=== PATIENT | female | born 1995 | race African-American/Black ===

== ENCOUNTER 2020-10-28 08:33 | Emergency (ER) | payer BC, SELFPAY ==
[2020-10-28] VITALS (7 sets, daily range): BP systolic 103–132; BP diastolic 68–86; PULSE 60–87; RESP 19–21; TEMP 36.1; O2SAT 100
--- NOTE | ~2020-10-28 | CT_ITS ---
EXAMINATION: CT brain wo con DATE: 10/28/2020 10:24 INDICATION: Syncope. Headache. TECHNIQUE: Computed tomography (CT) of the head was performed without intravenous contrast. The mA wa s adjusted according to patient size. Iterative reconstruction technique was employed. The dose-lengt h product was 605.33 mGy-cm. COMPARISON: None FINDINGS: There is no intracranial hemorrhage, acute infarction, or abnormal intracranial mass lesion . The ventricles are normal in size. There is mucosal thickening in the paranasal sinuses. The orbits are normal. The mastoid air cells are normal. IMPRESSION: 1. Normal brain. Reviewed, dictated and finalized at location A. IMPRESSION: 1. Normal brain.
--- NOTE | 2020-10-28 08:50 | ECG_ITS ---
Measurements Intervals [place] Rate: 65 P: 18 OK: 147 QRS: 84 QRSD: 89 T: 30 QT: 398 QTc: 414 Interpretive Statements SINUS RHYTHM WITH SINUS ARRHYTHMIA BASELINE ARTIFACT- I, II, AVR NORMAL ECG Electronically Signed On 10-28-2020 11:11:45 CDT by Ramón Barnard D.O.
[2020-10-28 09:10] LABS: Basophils Percent Auto 0.4 % (0.2-1.2); Eosinophils Absolute Auto 0.1 K/mm3 (0-0.3); Eosinophils Percent Auto 1.7 % (0-4.4); Hematocrit 39.2 % (37.0-47.0); Hemoglobin 13.2 g/dL (12.0-15.0); Immature Granulocyte Absolute 0.01 K/mm3 (0.00-0.031); Immature Granulocyte Percent A 0.2 % (0-0.5); Lymphocytes Absolute Auto 1.39 K/mm3 (0.9-3.2); Lymphocytes Percent Auto 29.1 % (18.3-44.2); Mean Corpuscular HGB Conc 33.7 g/dl (32-36); Mean Corpuscular Hemoglobin 33.1 pg (26-34); Mean Corpuscular Volume 98.2 fl (80-100); Mean Platelet Volume 10.7 fl (7.4-10.4); Monocytes Absolute Auto 0.4 K/mm3 (0.1-0.6); Monocytes Percent Auto 8.6 % (2.6-8.5); Neutrophils Absolute Auto 2.9 K/mm3 (1.3-6.7); Platelet Count Result 214 k/mm3 (150-375); Red Blood Count 3.99 M/mm3 (4.2-5.4); White Blood Count 4.8 K/mm3 (4.5-10.0)
[2020-10-28 09:22] LABS: Anion Gap 5 mmol/L (8-16); Blood Urea Nitrogen 12 mg/dL (7-17); Calcium 8.8 mg/dL (8.4-10.2); Carbon Dioxide 27 mmol/L (22-30); Chloride 107 mmol/L (98-107); Estimated CRCL calculation 77 ml/min; Estimated Glomerular Filt Rate > 60; Glucose 97 mg/dL (65-105); Potassium 4.4 mmol/L (3.4-5.0); Sodium 139 mmol/L (137-145)
--- NOTE | 2020-10-28 10:17 | PC.NURSE ---
Pt ambulatory to the bathroom with visitor at her side
[2020-10-28 10:53] LABS: Add Urine Microscopic? NO; Appearance Urine Clear (Clear); Bilirubin Urine Negative (Negative); Blood Urine Negative (Negative); Color Urine Yellow (Yellow); Glucose Urine UA Negative (Negative); Ketones Urine Negative (Negative); Leukocyte Esterase Ur Negative LEU/UL (Negative); Nitrate Urine Negative (Negative); Protein Urine Negative (Negative); Specific Grav Ur 1.023 (1.001-1.035); Urobilinogen Urine Negative mg/dL (<2.0)
[2020-10-28] MEDS: SODIUM CHLORIDE 0.9% IV 1,000 ML 999 ML IV CONT (11:32)
--- NOTE | 2020-10-28 11:43 | PC.NURSE ---
called lab, [facility], added on TSH [id number]
--- NOTE | 2020-10-28 18:08 | ED.GENADULT ---
HPI - General Adult General Chief complaint: Syncope Stated complaint: syncope yesterday Time Seen by Provider: 10/28/20 10:05 Source: patient Mode of arrival: ambulatory Limitations: no limitations History of Present Illness HPI narrative: Patient presents for evaluation of headache after a syncopal episode yesterday while standing. Patient was standing states she feels flushed then her vision became dark and she passed out. Her girlfriend states that she was only unconscious for approximately 10 seconds then she became responsive. She denies seizure-like activity. She denies vomiting, chest pain, shortness of breath, nausea, bleeding from any of her orifices or neurological deficits. Patient denies having a seizure history. Patient states she has not been ill recently. Patient denies chance of due to homosexuality. Patient denies urinary symptoms. Related Data Home Medications Medication Instructions Recorded Confirmed No Home Medications 10/28/20 10/28/20 Allergies Allergy/AdvReac Type Severity Reaction Status Date / Time No Known Allergies Allergy Mild Verified 10/28/20 10:08 Review of Systems Review of Systems: Narrative: CONSTITUTIONAL: Denies fever, chills, or sweats. EYES: Denies visual changes, redness, or discharge. ENT: Denies rhinorrhea, congestion, sore throat, or otalgia. CARDIOVASCULAR: Denies chest pain, palpitations, or edema. RESPIRATORY: Denies cough or dyspnea. GASTROINTESTINAL: Denies abdominal pain, nausea, vomiting, or diarrhea. GENITOURINARY: Denies dysuria or hematuria. SKIN: Denies rash or itching. MUSCULOSKELETAL: Denies back pain, joint pain, or myalgia. NEUROLOGIC: Reports headache and syncopal episode denies numbness, dizziness, or weakness. PSYCHIATRIC: Denies anxiety or depression. Exam Narrative: Exam Narrative: GENERAL: Well-appearing, well-nourished, and in no acute distress. HEAD: Normocephalic, atraumatic. EYES: PERRLA and EOMI. ENT: Nares clear, no rhinorrhea or epistaxis. Mucous membranes moist. Oropharynx without tonsillar hypertrophy exudate or other lesions. Bilateral TMs pearly crystal nonbulging NECK: Supple. No adenopathy or masses. CHEST: Clear to auscultation. No respiratory distress. No wheezes rales or rhonchi HEART: Regular rate and rhythm. No murmur heard. Normal peripheral pulses. EXTREMITIES: Normal range of motion. No edema. SKIN: Warm, dry, no rash. NEURO: No focal deficits. Alert and oriented x3. Neurologic function intact. No signs of neurologic deficits. Speech is clear and appropriate. There is no asymmetry of the face. PSYCH: Normal mood and affect. Course Vital Signs Vital signs: Vital Signs Temperature 97.0 F L 10/28/20 08:51 Pulse Rate 87 10/28/20 08:51 Respiratory Rate 20 10/28/20 08:51 Blood Pressure 132/68 10/28/20 08:51 Pulse Oximetry 100 10/28/20 08:51 Temperature 97.0 F L 10/28/20 08:51 Pulse Rate 65 10/28/20 13:10 Respiratory Rate 21 H 10/28/20 13:10 Blood Pressure 117/86 10/28/20 13:10 Pulse Oximetry 100 10/28/20 13:10 Medical Decision Making MDM Narrative Medical decision making narrative: Patient orthostatic vitals are positive. Patient feels greatly improved after receiving a liter of fluids. Patient CT and lab work are stable. Patient states she has an appointment with her primary care on Wednesday. Patient encouraged to go for reevaluation. Patient instructed to return to emergency department if she has any worsening or emergent symptoms. Patient has not had any chest pain, shortness of breath, syncopal episode she has been able to ambulate in emergency department without any dizziness or weakness. Patient states she is ready for discharge at this time. Vital Signs Vital Signs: Vital Signs Temperature 97.0 F L 10/28/20 08:51 Pulse Rate 87 10/28/20 08:51 Respiratory Rate 20 10/28/20 08:51 Blood Pressure 132/68 10/28/20 08:51 Pulse Oximetry 100 10/28/20 08:51
== END 2020-10-28 13:12 | disposition home or self-care (01) ==
PROVIDERS: Physician Assistant; Emergency Provider Emergency Medicine
DX: I95.1 Orthostatic hypotension (principal)
CPT/HCPCS: 36415; 70450; 80048; 81003; 81025; 84443; 85025; 93005; 96361; 96365; 99284; J0131; J7030